=== PATIENT | female | born 1940 | race Hispanic/Latino ===

== ENCOUNTER 2017-12-01 11:39 | Day surgery (SDC) | payer MEDICARE ==
[~2017-12-01 11:39] MED LIST: IOPIDINE ONE; MYDRIACYL ONE; NACL 0.9% 1000 ML 1,000 ML IV SCH; NEOFRIN ONE
[2017-12-01] MEDS ORDERED: MYDRIACYL OS ONE (11:54)
[2017-12-01] MEDS ORDERED: IOPIDINE OS ONE ×2 (11:54→12:47)
[2017-12-01] MEDS ORDERED: NEOFRIN OS ONE (11:54)
[2017-12-01 13:22] VITALS: BP 113/55
== END 2017-12-01 12:49 | disposition home or self-care (01) ==
LOC: OR 11:39
PROVIDERS: ATTEND Specialist
DX: H26.492 Other secondary cataract, left eye (principal)

== ENCOUNTER 2017-12-08 11:41 | Day surgery (SDC) | payer MEDICARE ==
[~2017-12-08 11:41] MED LIST changes: -NACL 0.9% 1000 ML 1,000 ML IV SCH
[2017-12-08] MEDS ORDERED: MYDRIACYL OD ONE (12:09)
[2017-12-08] MEDS ORDERED: IOPIDINE OD ONE ×2 (12:09→13:17)
[2017-12-08] MEDS ORDERED: NEOFRIN OD ONE (12:09)
[2017-12-08 13:55] VITALS: BP 142/68
== END 2017-12-08 13:18 | disposition home or self-care (01) ==
LOC: OR 11:41
PROVIDERS: ATTEND Specialist
DX: H26.491 Other secondary cataract, right eye (principal); J44.9 Chronic obstructive pulmonary disease, unspecified; E78.00 Pure hypercholesterolemia, unspecified; Z87.891 Personal history of nicotine dependence; Z90.710 Acquired absence of both cervix and uterus